=== PATIENT | male | born 1990 | race Two or more races ===

== ENCOUNTER 2021-03-04 09:04 | Emergency (ER) | payer SELFPAY ==
[~2021-03-04] VITALS: Ht 182.9 cm; Wt 78.0 kg
[2021-03-04 09:15] VITALS: BP 106/86
== END 2021-03-04 10:45 | disposition home or self-care (01) ==
LOC: ER 09:04
DX: F41.1 Generalized anxiety disorder (principal); F31.9 Bipolar disorder, unspecified; F90.9 Attention-deficit hyperactivity disorder, unspecified type; F15.10 Other stimulant abuse, uncomplicated; F12.10 Cannabis abuse, uncomplicated
CPT/HCPCS: 99283

== ENCOUNTER 2021-07-25 09:01 | Emergency (ER) | payer MEDICAID, OTHER ==
[~2021-07-25] VITALS: Ht 182.9 cm; Wt 82.0 kg
[2021-07-25] MEDS ORDERED: TETANUS, DIPHTHERIA, PERTUSSIS VAC/PF 0.5ML (>7YR OLD) IM ONE (09:45)
[2021-07-25] MEDS ORDERED: BACITRACIN ZINC OINT UDPKT TOP ONE (09:45)
[2021-07-25] MEDS ORDERED: LIDOCAINE HCL/EPINEPHRINE 1%-EPI 1:100,000 20 ML VIAL INFIL ONE (10:00)
[2021-07-25 10:50] VITALS: BP 113/61
== END 2021-07-25 10:52 | disposition home or self-care (01) ==
LOC: ER 09:01
DX: S01.81XA Laceration without foreign body of other part of head, initial encounter (principal); F41.9 Anxiety disorder, unspecified; F31.9 Bipolar disorder, unspecified; X83.8XXA Intentional self-harm by other specified means, initial encounter; Y93.89 Activity, other specified; Y92.9 Unspecified place or not applicable
CPT/HCPCS: 12014; 90471; 90715; 99283; A4217; J3490; Z7610